=== PATIENT | male | born 1945 | race Caucasian/White ===

== ENCOUNTER → 2024-03-14 | Outpatient (CLI) | payer OTHER, SELFPAY ==
[2024-03-14 09:32] LABS: Basophils # (Auto) 0.1 Thou/mm3 (0.0-0.2); Basophils % (Auto) 1 % (0-2.5); Eosinophils # (Auto) 0.4 Thou/mm3 (0.0-0.5); Eosinophils % (Auto) 4 % (0-10); Hematocrit 34.8 % (41.0-53.0); Hemoglobin 11.2 g/dL (13.5-16.0); Immature Granulocytes % (Auto) 0 % (0-0); Immature Granulocytes Auto 0.02 Thou/mm3 (0.00-0.00); Lymphocytes # (Auto) 2.3 Thou/mm3 (1.0-4.8); Lymphocytes % (Auto) 29 % (10-50); Mean Corpuscular HGB Conc 32.2 g/dl (31.0-37.0); Mean Corpuscular Hemoglobin 29.4 pg (25.0-35.0); Mean Corpuscular Volume 91 fL (80-100); Monocytes # (Auto) 0.6 Thou/mm3 (0.0-0.8); Monocytes % (Auto) 8 % (0-12); Neutrophils # (Auto) 4.6 Thou/mm3 (1.8-7.7); Neutrophils % (Auto) 58 % (37-80); Nucleated Red Blood Cell % 0 /100 WBC (0); Platelet Count 233 Thou/mm3 (140-440); RDW Standard Deviation 50.7 fL (35.1-43.9); Red Blood Count 3.81 Miln/mm3 (4.50-5.90); White Blood Count 7.9 Thou/mm3 (3.8-10.6)
[2024-03-14 09:49] LABS: Alanine Aminotransferase 9 U/L (10-49); Albumin/Globulin Ratio 1.9 (1.2-2.2); Alkaline Phosphatase 62 U/L (46-116); Anion Gap 9 (7-16); Aspartate Amino Transferase 10 U/L (0-34); BUN/Creatinine Ratio 17 Ratio (12-20); Bilirubin,Total 0.6 mg/dL (0.3-1.2); Blood Urea Nitrogen 27 mg/dL (9-23); Calcium 9.3 mg/dL (8.3-10.6); Calcium (Corrected) 9.3 mg/dL (8.5-10.1); Carbon Dioxide 27.6 mMol/L (20.0-31.0); Chloride 104 mMol/L (98-107); Creatinine (Component) 1.6 mg/dL (0.6-1.3); Globulin 2.1 gm/dL (2.3-3.5); Glucose 162 mg/dL (74-106); Osmolality,Calculated 290 (275-295); Potassium 3.8 mMol/L (3.4-5.1); Sodium 141 mMol/L (136-145); Total Protein 6.1 gm/dL (5.7-8.2); eGFR 44 See Note
[2024-03-14 10:59] LABS: Creatinine MALB Rnd Ur 76 mg/dL (30-125); Microalbumin Creat Ratio 243 mg/gCrea (<30); Microalbumin, Random Urine 185 mg/L (0-300)
== END | disposition home or self-care (01) ==
PROVIDERS: PCP Family Medicine; Referring Provider Internal Medicine; Visit Provider Internal Medicine
DX: N17.9 Acute kidney failure, unspecified (principal); D64.9 Anemia, unspecified
CPT/HCPCS: 36415; 80053; 82043; 82570; 85025

== ENCOUNTER 2024-11-25 16:42 | Emergency (ER) | payer SELFPAY ==
[2024-11-25 16:46] VITALS: BP 40/25; PULSE 80; PULSE 92; RESP 2; RESP 6; TEMP 35.6; O2SAT 92; BMI 21.7
--- NOTE | 2024-11-25 16:46 | PC.NURSE ---
LIZA; PER EMS, PT COMING FROM HOME; PT WAS FOUND BY FAMILY UNRESPONSIVE; [facility] OF 3 UPON OUR ARRIVAL. PT SYMPTOMATIC BRADYCARDIC; UNRESPONSIVE WITH HR OF 20. PT PACED AT 80; PT GIVEN ATROPINE 0.5MG IV PUSH @1637. PT HAS IV LINE 20G R HAND IV. PMH PROSTATE CANCER, AND HIGH BP. FIRE PLACED PT ON OPA. PT HAS WEAK RESPIRATIONS, LOOKED AGONAL. 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 MANUAL AUSCULTATION OF BP ATTEMPTED; THIS RN UNABLE TO HEAR KOROTKOFF SOUNDS.
--- NOTE | 2024-11-25 17:03 | EDNOTE_ITS ---
ED General RME/HPI General Chief complaint: Altered Mental Status Stated complaint: STAT Time Seen by Provider: 11/25/24 16:50 Arrival date/time: 11/25/24 16:42 RME / HPI RME / HPI narrative: See MDM Related Data Home Medications ?Medication ?Instructions ?Recorded ?Confirmed atorvastatin 20 mg tablet 20 mg PO QDAY 11/04/1907/02 lisinopril 5 mg tablet 5 mg PO QDAY 11/04/19 metformin 1,000 mg tablet 1,000 mg PO BID 11/04/19 tamsulosin 0.4 mg capsule 0.4 mg PO QHS 04/03/2007/02 aspirin 81 mg tablet,delayed 81 mg PO QDAY 06/19/20 release Held on 07/02/22. Instructions: Resume on 07/03/22. ticagrelor 90 mg tablet (Brilinta) 90 mg PO BID 07/02/22 Held on 07/02/22. Instructions: Resume on 07/03/22. abiraterone 250 mg tablet 250 mg PO QID 07/02/2207/02 bumetanide 1 mg tablet 1 mg PO QDAY 07/02/22 denosumab 120 mg/1.7 mL (70 mg/mL) 120 mg subcut QMONT H 07/02/22 07/02/22 subcutaneous solution (Xgeva) digoxin 125 mcg (0.125 mg) tablet 125 mcg PO QDAY 06/1207/02/22 Previous Rx's ?Medication ?Instructions ?Recorded hydrocodone 5 mg-acetaminophen 325 1 tab PO Q8H PRN pa in #10 tabs 09/18/22 mg tablet potassium chloride 20 mEq 20 meq PO QDAY #5 tabs 09/18 tablet,extended release Allergies Allergy/AdvReac Type Severity Reaction Status Date / Time No Known Allergies Allergy Verified 07/02/22 08:37 Review of Systems Review of Systems Systems Reviewed: All systems reviewed, normal except as documented ED Exam Narrative Physical exam: GENERAL: NAD, frail, cachectic, temporal wasting HEENT: Dry mucosa. Eyes open, symmetrical, & clear, nonreactive CARDIO: Heart RRR, no obvious murmurs PULM: dyspnea CTA B/L, bradypnea, agonal breath sounds GI: Abdomen soft, nondistended, no pain on palpation. SKIN/MSK/EXT: No wounds/rashes/edema/amputations, no pain on palpation. Pedal pulses present B/L NEURO: AAOx3, no focal neuro deficits, able to move all 4 extremities Course Quality Measures none Orders Category Date Time Status Comfort Measures NEEDED Care 11/25/24 17:25 Completed EKG (ED ONLY) *Do not use* NOW Care 11/25/24 17:04 Completed Oral Care As Needed NEEDED Care 11/25/24 17:24 Completed EKG (ED Only) Stat Exams 11/25/24 17:04 Ordered Morphine IV Drip 100mg/100ml [Morphine Sulfate IV Drip Med 11/25/24 17:24 Di scontinued 100mg/100ml] 100 ml IV 1 mg/hr Ondansetron Odt [Zofran Odt] Med 11/25/24 18:00 Discontinued 4 mg PO Q6HR Airway suctioning NEEDED RT 11/25/24 17:24 Completed See [facility] Vital Signs Vital signs: Vital Signs Temperature 96.1 F L 11/25/24 16:46 Pulse Rate 92 11/25/24 16:46 Respiratory Rate 2 L 11/25/24 16:46 Blood Pressure 40/25 L 11/25/24 16:46 Pulse Oximetry (%) 92 L 11/25/24 16:46 Oxygen Delivery Method Room Air 11/25/24 16:46 Discharge Plan Plan Patient Disposition: Discharge Disposition comment: 10:47 PM Prescriptions/Referrals Referrals: No Primary/Family,Physician [Primary Care Provider] - In 1 week Problem List Clinical Impression: Cardiopulmonary arrest Patient/Caregiver Discharge Instructions Print Language: Kazakh [facility] Narrative MDM hospital course: 79-year-old male with past medical history of prostate cancer, who was brought to the ED by EMS due to bradycardia and agonal breathing. EMS on the scene came to assess the patient noted him to be bradycardic and tachypneic got IV access gave one 0.5 mg dose of atropine, placed on pacing pads and was brought here to the ER. Here in the ER noted to have advanced directive stating no attempts to resuscitate the patient signed by the patient and his primary care physician. Spoke to family (daughter in law, , and son of the patient) who agreed that the patients condition is futile and would like to proceed with comfort care and comfort measures including morphine drip ordered. Medication Administration(s) Medication Administration History Discontinued Medications Morphine Sulfate (Morphine Sulfate Iv Drip 100mg/100ml) 100 mls @ 1 mls/hr IV .Q24H PRN; Protocol PRN Reason: PAIN (COMFORT CARE) Stop: 11/30/24 17:23 Last Titration: 11/25/24 22:47 Dose: Infused Documented By: MIKEY Co-signed By: Admin: 11/25/24 17:55 Dose: 1 mg/hr, 1 mls/hr Documented By: JANE Co-signed By: ESTRADA Ondansetron HCl (Ondansetron Odt 4 Mg Tabrap) 4 mg PO Q6HR [facility] Stop: 12/25/24 17:59 Last Admin: 11/26/24 00:11 Dose: Not Given Documented By: MIKEY Non-Admin Reason: Change of Condition Admin: 11/25/24 19:03 Dose: Not Given Documented By: JANE Non-Admin Reason: NPO Comments: PT UNRESPONSIVE; OPA
--- NOTE | 2024-11-25 17:15 | PC.NURSE ---
MINH, PT'S SON, AND PT'S AT BEDSIDE TO SEE PT.
[2024-11-25] MEDS: Morphine IV Drip 100mg/100ml 100 ML IV (17:55)
[2024-11-25 17:57] VITALS: BP 46/28; PULSE 133; RESP 14; O2SAT 98
--- NOTE | 2024-11-25 18:26 | PD.EDADDENDU ---
Emergency Room Addendum <Chantel Briones - Last Filed: 11/25/24 23:28> Addendum Narrative: I took over the care from previous shift physician at 6 PM on 11/25/2024. See previous notes for complete H & P and ED course. I reviewed all diagnostic test results. My interpretation of the EKG is Diagnoses include: Cardiopulmonary arrest. Treatment here included Morphine 100 mg, Zofran 4 mg, Comfort measures. Sharad Magdaleno MD <Sharad Magdaleno MD - Last Filed: 11/26/24 05:31> Addendum Narrative: I took over the care from previous shift physician, Dr. Black, at 6 PM on 11/25/2024. See previous notes for complete H & P and ED course. Patient is DNR and DNI. Patient is on morphine drip. Family is waiting for the patient to pass away. At 10:47 PM on 11/25/24, the patient . Rest in peace Mr. Arriaza. Sharad Magdaleno MD
[2024-11-25 19:49] VITALS: BP 65/41; PULSE 119; RESP 14; TEMP 35.6; O2SAT 98
[2024-11-25 21:37] VITALS: BP 105/56; PULSE 94; RESP 16; O2SAT 100
--- NOTE | 2024-11-25 21:53 | PC.NURSE ---
skin tears to bilateral upper arms cleaned and dressed. dr. garnett at bedside speaking with family.
--- NOTE | 2024-11-25 22:09 | PC.NURSE ---
irrigated skin tears on bilateral elbows, applied nonadhesive dressing and coban. CMS intact.
--- NOTE | 2024-11-25 22:42 | PC.NURSE ---
DR. ROMO TO BEDSIDE TO CHECK PATIENT. PT HEART RATE IN THE 40'S. PER DR. ROMO PATIENT STILL HAS HEART BEAT. PT FAMILY AT BEDSIDE.
--- NOTE | 2024-11-25 22:47 | PC.NURSE ---
DR. ROMO AT BEDSIDE. TOD CALLED [phone]
== END 2024-11-25 22:47 | disposition expired ==
PROVIDERS: Emergency Provider Emergency Medicine
DX: I46.9 Cardiac arrest, cause unspecified (principal); Z66 Do not resuscitate; Z51.5 Encounter for palliative care
CPT/HCPCS: 93005; 99285; 99291; J2270